=== PATIENT | male | born 1980 | race Caucasian/White ===

== ENCOUNTER 2018-10-28 06:20 | Emergency (ER) | payer MEDICAID ==
[~2018-10-28] VITALS: Ht 180.3 cm; Wt 70.5 kg
[2018-10-28 06:21] VITALS: BP 143/92
--- NOTE | 2018-10-28 06:32 | NUR ---
PT [facility]. STATES "NOTICED PAIN TO RIGHT JAW ON SATURDAY. WOKE UP TODAY WITH SWELLING TO RIGHT SIDE OF FACE AND RINGING IN BOTH EARS. PAIN AT REST 3/10, BUT WHEN HE BITES HIS LIP OR TRIES TO EAT ITS 02/14."
--- NOTE | 2018-10-28 06:47 | NUR ---
HANDOFF OF CARE GIVEN TO BURKE BARDALES.
--- NOTE | 2018-10-28 06:53 | NUR ---
RECEIVED REPORT FROM EMANUEL, PLAN OF CARE DISCUSSED
[2018-10-28] MEDS ORDERED: CEFTRIAXONE 1,000 MG IM ONE (07:00)
[2018-10-28] MEDS ORDERED: CEFTRIAXONE 1,000 MG ONE (07:03)
--- NOTE | 2018-10-28 07:32 | NUR ---
Patient/Caregiver given discharge instructions and they have confirmed that they understand the instructions. Patient ambulatory with steady gait.
== END 2018-10-28 07:34 | disposition home or self-care (01) ==
LOC: ED 07:25
DX: K02.9 Dental caries, unspecified (principal)
CPT/HCPCS: 96372; 99283; J0696